=== PATIENT | female | born 1975 | race Caucasian/White ===

== ENCOUNTER → 2017-01-21 | Outpatient (CLI) | payer OTHER ==
[~2017-01-21] MED LIST: GADOBUTROL 10 MMOL/10 ML VIAL IV ONE
--- NOTE | 2017-01-21 16:49 | RAD ---
BRAIN WO/W CONTRAST Indication: YEARLY F/U SUPER CELLULER MENINGIOMA, NO NEW COMPLAINTS, PRIOR MRI, 10ML GADAVIST Reason: / Spl. Instructions: / History: COMPARISON: None TECHNIQUE: Axial diffusion weighted imaging was obtained. Additional sagittal T1, axial T1, axial FLAIR, and axial T2 weighted imaging of the brain was also performed. Postcontrast T1 weighted imaging was also performed after intravenous administration of gadolinium based contrast. FINDINGS: No abnormal signal within the brain parenchyma. Previously noted suprasellar enhancement is not seen on this study. There is no nodular enhancement or new enhancement to suggest recurrent tumor. No evidence of acute intracranial hemorrhage. No restricted diffusion to indicate acute infarct. No extra-axial fluid collections. No midline shift or mass effect. Ventricular size is appropriate. Midline structures have a normal anatomic configuration. Pituitary gland and infundibulum are unremarkable. Basal cisterns are patent. Arterial flow voids at the skull base and major dural venous sinuses are maintained. Globes and orbits are unremarkable. Paranasal sinuses and mastoid air cells are clear. IMPRESSION: - Previously noted suprasellar enhancement is not seen on this study. There is no nodular enhancement or new enhancement to suggest recurrent tumor. - No acute or recent infarct. No acute intracranial abnormality. Electronically signed by: Raza Yates (Jan 21, 2017 16:47:37)
== END | disposition home or self-care (01) ==
LOC: MRI 15:27
PROVIDERS: ATTEND Neurological Surgery
DX: D32.0 Benign neoplasm of cerebral meninges (principal)
CPT/HCPCS: 70553; A9585